=== PATIENT | male | born 1995 | race Caucasian/White ===

== ENCOUNTER 2020-08-20 06:59 | Emergency (ER) | payer OTHER, SELFPAY ==
[2020-08-20] MEDS ORDERED: Boostrix 0.5 ML (Tdap) VIAL ONE (07:17)
[2020-08-20] MEDS ORDERED: Sodium Chloride 0.9% 1,000 ML ONE (07:17)
[2020-08-20 07:22] LABS: #Basophils 0.1 thou/uL (0.0-0.2); #Lymphocytes 1.4 thou/uL (1.20-3.40); #Monocytes 0.9 thou/uL (0.11-0.59); #Neutrophils 8.1 thou/uL (1.40-6.50); %Basophils 0.7 % (0.0-1.0); %Eosinophils 0.4 % (0.0-10.0); %Lymphocytes 13.1 % (21.0-51.0); %Monocytes 8.7 % (0.0-10.0); %Neutrophils 77.1 % (42.0-75.0); Hemoglobin 13.8 g/dL (14.0-18.0); Mean Corpuscular HGB CONC 33.4 g/dL (32.0-36.0); Mean Corpuscular Hemoglobin 29.1 pg (27.0-31.0); Mean Corpuscular Volume 87.1 fL (78.0-98.0); Platelet Count 276 thou/uL (130-400); RBC Distribution Width 10.7 % (11.5-14.5); Red Blood Cell (RBC) Count 4.77 mill/uL (4.70-6.10); White Blood Cell (WBC) Count 10.5 thou/uL (4.8-10.8)
[2020-08-20 07:37] LABS: Acetaminophen Less than 6.0 mcg/mL (10.0-30.0); Alcohol Less than 10 mg/dL (Less than 10); Salicylate Less than 8.0 mg/dL (15.0-30.0)
[2020-08-20 07:39] LABS: ALT (SGPT) 13 U/L (8-55); AST (SGOT) 15 U/L (5-34); Albumin 4.2 g/dL (3.5-5.0); Alkaline Phosphatase 57 U/L (40-110); Anion Gap 17 mmol/L (10-20); BUN (Urea Nitrogen) 10 mg/dL (8.9-20.6); Bilirubin, Total 0.6 mg/dL (0.2-1.2); Calc. Creatinine Clearance 0 mL/min (70-130); Calcium 8.9 mg/dL (7.8-10.44); Carbon Dioxide 22 mmol/L (22-29); Chloride 104 mmol/L (98-107); Glucose 132 mg/dL (70-105); Potassium 3.2 mmol/L (3.5-5.1); Protein, Total 7.2 g/dL (6.0-8.3); Sodium 140 mmol/L (136-145)
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
[2020-08-20] MEDS ORDERED: Lidocaine 1% 20 ML MDV ONE (08:34)
[2020-08-20] MEDS ORDERED: Bacitracin 1 PK ONE (09:08)
== END 2020-08-20 09:48 | disposition home or self-care (01) ==
LOC: MADERS 06:59 → EEVIPCON 06:59 → MADERS 09:48
DX: S56.126A Laceration of flexor muscle, fascia and tendon of left ring finger at forearm level, initial encounter (principal); S64.495A Injury of digital nerve of left ring finger, initial encounter; S64.493A Injury of digital nerve of left middle finger, initial encounter; S61.211A Laceration without foreign body of left index finger without damage to nail, initial encounter; S61.213A Laceration without foreign body of left middle finger without damage to nail, initial encounter; S00.81XA Abrasion of other part of head, initial encounter; R00.0 Tachycardia, unspecified; F17.210 Nicotine dependence, cigarettes, uncomplicated; W26.0XXA Contact with knife, initial encounter
CPT/HCPCS: 12004; 80053; 80307; 84443; 85025; 90471; 90715; J7050

== ENCOUNTER 2020-08-24 19:06 | Emergency (ER) | payer OTHER, SELFPAY ==
[~2020-08-24 19:06] MED LIST: EPINEPHrine 1 MG/10 ML Abboject SYRINGE ONE; Norepinephrine 4 MG/4 ML VIAL ONE; Sodium Chloride 0.9% 1,000 ML BAG ONE
[2020-08-24] MEDS ORDERED: Fentanyl 100 MCG/2 ML VIAL ONE (19:12)
[2020-08-24] MEDS ORDERED: Norepinephrine 4 MG/4 ML VIAL ONE (19:19)
[2020-08-24] MEDS ORDERED: Propofol 1,000 MG/100 ML VIAL IV ONE (19:20)
[2020-08-24 19:26] LABS: INR-International Normal Ratio 1.2; Prothrombin Time 15.6 sec (12.0-14.7)
[2020-08-24 19:36] LABS: ALT (SGPT) 591 U/L (8-55); AST (SGOT) 572 U/L (5-34); Albumin 3.4 g/dL (3.5-5.0); Alkaline Phosphatase 67 U/L (40-110); Anion Gap 29 mmol/L (10-20); BUN (Urea Nitrogen) 17 mg/dL (8.9-20.6); Bilirubin, Total 0.2 mg/dL (0.2-1.2); Calc. Creatinine Clearance 0 mL/min (70-130); Carbon Dioxide 14 mmol/L (22-29); Chloride 102 mmol/L (98-107); Globulin 2.5 g/dL (2.4-3.5); Glucose 447 mg/dL (70-105); Potassium 4.1 mmol/L (3.5-5.1); Protein, Total 5.9 g/dL (6.0-8.3); Sodium 141 mmol/L (136-145)
[2020-08-24 19:41] LABS: Band 5 % (5-11); Eosinophils 3 % (0-10); Hemoglobin 13.7 g/dL (14.0-18.0); Lymphocytes 26 % (21-51); MDiff Complete? YES; Mean Corpuscular HGB CONC 31.2 g/dL (32.0-36.0); Mean Corpuscular Hemoglobin 28.9 pg (27.0-31.0); Mean Corpuscular Volume 92.6 fL (78.0-98.0); Mean Platelet Volume 6.7 fL (7.4-10.4); Monocytes 5 % (0-10); Neutrophil 53 % (42-75); Platelet Count 295 thou/uL (130-400); Platelet Morphology Comment Appears Adequate; RBC Distribution Width 11.5 % (11.5-14.5); Reactive Lymphocytes 8 % (0-10); Red Blood Cell (RBC) Count 4.75 mill/uL (4.70-6.10); White Blood Cell (WBC) Count 21.1 thou/uL (4.8-10.8)
[2020-08-24 19:49] LABS: Cocaine Metabolite Screen Not Detected (NotDetected); Methamphetamine Not Detected (NotDetected); Phencyclidine (PCP) Not Detected (NotDetected); THC/Cannabinoid Screen Not Detected (NotDetected)
[2020-08-24 19:50] LABS: Amphetamine Not Detected (NotDetected); Barbiturates Screen Not Detected (NotDetected); Benzodiazepine Screen Detected (NotDetected); Medtox Control Line Valid? VALID (VALID); Methadone Not Detected (NotDetected); Opiate Screen Not Detected (NotDetected); Oxycodone Screen Not Detected (NotDetected); Tricyclic Screen Not Detected (NotDetected)
--- NOTE | 2020-08-24 19:55 | RAD ---
CHEST ONE VIEW: 08/24/20 HISTORY: CPR in progress. COMPARISON: Prior exam dated 03/10/20. FINDINGS: The patient is intubated with the ET tube tip seen 1.9 cm above the level of the nathan. There are p acer pads overlying the right chest wall. Heart size is accentuated by the exam technique. No pleura l effusion or pneumothorax evident. No definite acute osseous abnormality is noted. IMPRESSION: Intubation and overlying pacer pads placement. No definite acute cardiopulmonary abnormality. POS: BH
[2020-08-24 19:57] LABS: Acetaminophen Less than 6.0 mcg/mL (10.0-30.0); Alcohol 12 mg/dL (Less than 10); Salicylate Less than 8.0 mg/dL (15.0-30.0)
[2020-08-24 20:00] LABS: CKMB 2.7 ng/mL (0-6.6)
== END 2020-08-24 20:19 | disposition short-term general hospital (02) ==
LOC: MADERS 19:06
DX: T71.9XXA Asphyxiation due to unspecified cause, initial encounter (principal); I46.9 Cardiac arrest, cause unspecified; F17.210 Nicotine dependence, cigarettes, uncomplicated
CPT/HCPCS: 36556; 51702; 71045; 80053; 80306; 80307; 82553; 84484; 85025; 85610; 85730; 92950; 93005; 96361; 96365; 96374; 96375; J0171; J2704; J3010; J7050; J7070